=== PATIENT | male | born 1980 | race African-American/Black ===

== ENCOUNTER 2017-12-07 14:18 | Emergency (ER) | payer OTHER, BC ==
[2017-12-07] MEDS ORDERED: Bupivacaine PF 0.5% 30 ML VIAL ONE (14:37)
[2017-12-07] MEDS ORDERED: Lidocaine 1% 20 ML MDV ONE (14:37)
[2017-12-07] MEDS ORDERED: HYDROcodone/Acetaminophen 10/325 mg Tablet ONE (14:38)
--- NOTE | 2017-12-07 14:59 | RAD ---
THREE VIEWS OF THE LEFT INDEX FINGER: Date: 12-07-17 Comparison: None. History: Smashed index finger between two pipes 30 minutes ago. FINDINGS: There is a severe soft tissue injury involving the distal aspect of the second digit with an associat ed comminuted displaced fracture involving the distal tip of the second distal phalanx consistent wit h an open fracture. There is prominent volar displacement of fracture fragment seen on the lateral vi ew. IMPRESSION: Comminuted and displaced open fracture involving the distal aspect of the second distal phalanx. POS: [id number]
== END 2017-12-07 15:55 | disposition home or self-care (01) ==
LOC: MADERS 14:18
DX: S68.111A Complete traumatic metacarpophalangeal amputation of left index finger, initial encounter (principal); W23.0XXA Caught, crushed, jammed, or pinched between moving objects, initial encounter
CPT/HCPCS: 99283; J2001; S0020